=== PATIENT | female | born 1960 | race Caucasian/White ===

== ENCOUNTER 2017-09-28 15:45 | Emergency (ER) | payer OTHER, BC ==
[2017-09-28 15:52] VITALS: BP 143/90; PULSE 81; RESP 16; TEMP 98.1; O2SAT 92
--- NOTE | 2017-09-28 16:26 | EDPHY ---
H & P Stated Complaint: possible UTI Time Seen by Provider: 09/28/17 16:05 HPI/ROS: CHIEF COMPLAINT: Dysuria HISTORY OF PRESENT ILLNESS: Patient is a 57-year-old female who comes to the emergency department complaining of dysuria and frequency for the last 4 days. She has been taking azo and cranberry juice with moderate improvement. No fever. No flank pain. No nausea vomiting. She states that this is similar to previous urinary tract infections. She denies risk of . REVIEW OF SYSTEMS: Constitutional: denies: chills, fever, recent illness, recent injury EENTM: denies: blurred vision, double vision, nose congestion Respiratory: denies: cough, shortness of breath Cardiac: denies: chest pain, irregular heart rate, lightheadedness, palpitations Gastrointestinal/Abdominal: denies: abdominal pain, diarrhea, nausea, vomiting, blood streaked stools Genitourinary: See HPI Musculoskeletal: denies: joint pain, muscle pain Skin: denies: lesions, rash, jaundice, bruising Neurological: denies: headache, numbness, paresthesia, tingling, dizziness, weakness Hematologic/Lymphatic: denies: blood clots, easy bleeding, easy bruising Immunologic/allergic: denies: HIV/AIDS, transplant EXAM: GENERAL: Well-appearing, well-nourished and in no acute distress. HEAD: Atraumatic, normocephalic. EYES: Pupils equal round and reactive to light, extraocular movements intact, sclera anicteric, conjunctiva are normal. ENT: TMs normal, nares patent, oropharynx clear without exudates. Moist mucous membranes. NECK: Normal range of motion, supple without lymphadenopathy or JVD. LUNGS: Breath sounds clear to auscultation bilaterally and equal. No wheezes rales or rhonchi. HEART: Regular rate and rhythm without murmurs, rubs or gallops. ABDOMEN: Soft, nontender, normoactive bowel sounds. No guarding, no rebound. No masses appreciated. BACK: No CVA tenderness, no spinal tenderness, step-offs or deformities EXTREMITIES: Normal range of motion, no pitting or edema. No clubbing or cyanosis. NEUROLOGICAL: Cranial nerves II through XII grossly intact. Normal speech, normal gait. 5/5 strength, normal movement in all extremities, normal sensation PSYCH: Normal mood, normal affect. SKIN: Warm, dry, normal turgor, no visible rashes or lesions. Source: Patient, Family Exam Limitations: No limitations - Personal History Current Tetanus Diphtheria and Acellular Pertussis (TDAP): Yes Tetanus Vaccine Date: 2015 - Medical/Surgical History Hx Asthma: No Hx Chronic Respiratory Disease: No Hx Diabetes: Yes Hx Cardiac Disease: No Hx Renal Disease: No Hx Cirrhosis: No Hx Alcoholism: No Hx HIV/AIDS: No Hx Splenectomy or Spleen Trauma: No Other PMH: Migraines. Esophagus fixed. csection. sleep apnea? CPAP/o2. tonsilectomy. low back surg x 2 for herniated discs. - Family History Significant Family History: No pertinent family hx - Social History Smoking Status: Former smoker Alcohol Use: Sober Drug Use: None Constitutional: Initial Vital Signs Temperature (C) 36.7 C 09/28/17 15:49 Heart Rate 81 09/28/17 15:49 Respiratory Rate 16 09/28/17 15:49 Blood Pressure 143/90 H 09/28/17 15:49 O2 Sat (%) 92 09/28/17 15:49 O2 Delivery Mode Room Air Allergies/Adverse Reactions: Penicillins Allergy (Verified 09/28/17 15:52) Sulfa (Sulfonamide Antibiotics) Allergy (Verified 09/28/17 15:52) Home Medications: Medication Instructions Recorded Bupropion HCl [Wellbutrin Sr] mg PO 05/31/12 Aspirin 325 mg (OTC) 08/07/14 CALTRATE 600+D PLUS TAB CHEW 08/07/14 Centrum Silver Tablet 08/07/14 Coq-10 08/07/14 Crestor 20mg (RX) 08/07/14 Fish Oil 08/07/14 Folic Acid 08/07/14 Janumet 50-1,000 mg Tablet 08/07/14 Medroxyprogesterone 08/07/14 Omeprazole 08/07/14 Terazosin HCl 08/07/14 Valacyclovir HCl 08/07/14 Valsartan/Hctz 08/07/14 Vesicare 5 MG (RX) 08/07/14 Vitamin D3 08/07/14 Cephalexin [Keflex] 500 mg PO TID #21 cap 09/28/17 Fluconazole [Diflucan (*)] 150 mg PO ONCE #1 tab 09/28/17 Medical Decision Making ED Course/Re-evaluation: The patients urinalysis is positive. I will start her on Keflex. I will also prescribe for Diflucan because she tends to get yeast infections. She is happy with this and declines further workup or testing at this time Differential Diagnosis: Partial list of the Differential diagnosis considered include but were not limited to; urinary tract infection, pyelonephritis and although unlikely based on the history and physical exam, I also considered kidney stone, sepsis, appendicitis, . I discussed these differential diagnoses and the plan with the patient as well as the usual and expected course. The patient understands that the diagnosis is provisional and that in medicine we are not always correct and that further workup is often warranted. Usual and customary warnings were given. All of the patient's questions were answered. The patient was instructed to return to the emergency department should the symptoms at all worsen or return, otherwise to followup with the physician as we discussed. - Data Points Laboratory Results: 09/28/17 16:00 Urine Color ORANGE Urine Appearance CLEAR Urine pH 5.5 (5.0-7.5) Ur Specific [place] <= 1.005 (1.002-1.030) Urine Protein NEGATIVE (NEGATIVE) Urine Ketones NEGATIVE (NEGATIVE) Urine Blood NOT REPORTED (NEGATIVE) Urine Nitrate NOT REPORTED (NEGATIVE) Urine Bilirubin NEGATIVE (NEGATIVE) Urine Urobilinogen NOT REPORTED EU EU (0.2-1.0) Ur Leukocyte Esterase NOT REPORTED (NEGATIVE) Urine RBC 25-50 /hpf H /hpf (0-3) Urine WBC 15-25 /hpf H /hpf (0-3) Ur Epithelial Cells 1+ /lpf /lpf (NONE-1+) Ur Renal Epithelial Cell OCCASIONAL /hpf H /hpf (NONE SEEN) Urine Bacteria 1+ /hpf H /hpf (NONE SEEN) Hyaline Casts 0-1 /lpf /lpf (0-1) Urine Glucose NOT REPORTED (NEGATIVE) Medications Given: Discontinued Medications Cephalexin HCl (Keflex) 500 mg PO EDNOW ONE PRN Reason: Protocol Stop: 09/28/17 16:28 Last Admin: 09/28/17 16:34 Dose: 500 mg Departure - Departure Disposition: Home, Routine, Self-Care Clinical Impression: Urinary tract infection Qualifiers: Urinary tract infection type: acute cystitis Hematuria presence: without hematuria Qualified Code(s): N30.00 - Acute cystitis without hematuria Condition: Good Instructions: Urinary Tract Infection in Women (ED) Referrals: Jordan Thompson MD [Medical Doctor] - As per Instructions Prescriptions: Cephalexin [Keflex] 500 mg PO TID #21 cap Fluconazole [Diflucan (*)] 150 mg PO ONCE #1 tab
[2017-09-28] MEDS ORDERED: CEPHALEXIN 500 MG CAP PO ONE (16:27)
== END 2017-09-28 16:39 | disposition home or self-care (01) ==
LOC: CED 15:45
DX: N30.00 Acute cystitis without hematuria (principal); B96.89 Other specified bacterial agents as the cause of diseases classified elsewhere; E11.9 Type 2 diabetes mellitus without complications; Z87.891 Personal history of nicotine dependence; Z79.82 Long term (current) use of aspirin
CPT/HCPCS: 81003-PO; 81015-PO

== ENCOUNTER → 2017-12-16 | Outpatient (CLI) | payer OTHER, BC | LOC: BMCIMAGING 13:36 | PROVIDERS: ATTEND Orthopaedic Surgery Hand Surgery | DX: M19.011 Primary osteoarthritis, right shoulder (principal); M19.042 Primary osteoarthritis, left hand; M18.12 Unilateral primary osteoarthritis of first carpometacarpal joint, left hand ==